=== PATIENT | male | born 1935 | race Hispanic/Latino ===

== ENCOUNTER → 2023-08-29 | Outpatient (CLI) | payer OTHER ==
[~2023-08-29] MED LIST: AEC81 PO; ALOG12.52 PO; ATOR40TA69 PO; BROM3DRO OP; CARB1TAB35 PO; CLOP-31 PO; EMPA25TA PO; FINA5TAB41 PO; GLIP10TA9 PO; LATA7.5D OP; LISI10TA24 PO; METF-445 PO; PIOG45TA64 PO; VITA1CAP85 PO
== END | disposition home or self-care (01) ==
LOC: SHCH 07:38
PROVIDERS: ATTEND Internal Medicine Cardiovascular Disease
DX: I50.22 Chronic systolic (congestive) heart failure (principal); I51.89 Other ill-defined heart diseases; R94.39 Abnormal result of other cardiovascular function study
CPT/HCPCS: 78481; A9512